=== PATIENT | male | born 2000 | race Caucasian/White ===

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

== ENCOUNTER 2020-03-14 08:26 | Emergency (ER) | payer OTHER ==
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
[2020-03-14 08:48] VITALS: BP 133/58; PULSE 74; TEMP 98.5; BMI 21.1
--- OUTSIDE RECORDS SUMMARY | 2020-03-14 08:56 | XMS ---
:2000 Author Organization [facility] Care Team Providers Name Role Phone ED STAFF PHYSICIAN Unavailable Unavailable ED STAFF PHYSICIAN, STAFF Unavailable Unavailable Re-disclosure Warning The records that you are about to access may contain information from federally- assisted alcohol or drug abuse programs. If such information is present, then the following federally mandated warning applies: This information has been disclosed to you from records protected by federal confidentiality rules (42 CFR part 2). The federal rules prohibit you from making any further disclosure of this information unless further disclosure is expressly permitted by the written consent of the person to whom it pertains or as otherwise permitted by 42 CFR part 2. A general authorization for the release of medical or other information is NOT sufficient for this purpose. The Federal rules restrict any use of the information to criminally investigate or prosecute any alcohol or drug abuse patient.The records that you are about to access may contain highly sensitive health information, the redisclosure of which is protected by Article 27-F of the [facility] Public Health law. If you continue you may haveaccess to information: Regarding HIV / AIDS; Provided by facilities licensed or operated by the [facility] Office of Mental Health; or Provided by the [facility] Office for People With Developmental Disabilities. If such information is present, then the following [facility] mandated warning applies: This information has been disclosed to you from confidential records which are protected by state law. State law prohibits you from making any further disclosure of this information without the specific written consent of the person to whom it pertains, or as otherwise permitted by law. Any unauthorized further disclosure in violation of state law may result in a fine or penitentiary sentence or both. A general authorization for the release of medical or other information is NOT sufficient authorization for further disclosure. Encounters Encounter Providers Location Date Indications Data Source(s ) Emergency Attender: ED STAFF H 05/20/2019 [facility] PHYSICIANAttender: 06:08:00 PM EST M edical Center STAFF ED STAFF - 05/20/2019 PHYSICIANAdmitter: 08:40:00 PM EST ED STAFF PHYSICIAN Patient discharged. Emergency H 09/15/2018 02:30:00 PM EDT [facility] Outpatient 08/26/2018 11:30:00 AM EDT shout[facility] ([employer]) Medications Medication Brand Start Product Dose Route Administrative Pharmacy [facility] Indications Reaction Description Data Name Date Form Instructions Instructions Source(s) doxycycline doxycy 1 complet Cristobal nt hyclate 100 mcmanus ed Anel MG Oral hyclat Medical Capsule e 100 Center doxycycline mg hyclate 100 Capsul mg Capsule, e, Ordered By: Leidy white By: Angel Hamilton FNPDirectio cho ns: 1 Penar, capsule FNPDir oral twice ection a day s: 1 capsul e oral twice a day Ibuprofen ibupro 1 complet [facility] 600 MG Oral fen ed Anel Tablet 600 mg Medical ibuprofen Tablet Center 600 mg , Tablet, Ordere Ordered By: d By: kalina Chaudhary s: 1 tablet a, oral every PADire six hours ctions PRN pain : 1 tablet oral every six hours PRN pain Insurance Providers Payer name Policy type Policy ID Covered Covered green party's Policy P imani / Coverage green party ID relationship to [employer] ormation type wells AFFINITY [id number] SP [id number] 600 AFFINITY O [id number] 01 [id number] HEALTH PLAN AFFINITY O [id number] 01 [id number] 600 HEALTH PLAN Problems, Conditions, and Diagnoses Code Display Name Description Problem Type Effective Data Dates Source(s) F17.210 Nicotine NICOTINE Diagnosis 05/20/2019 [facility] dependence, DEPENDENCE, 06:08:00 PM Medical cigarettes, CIGARETTES, EST Center uncomplicated UNCOMPLICATED J45.909 Unspecified UNSPECIFIED Diagnosis 05/20/2019 [facility] asthma, ASTHMA, 06:08:00 PM Medical uncomplicated UNCOMPLICATED EST Center Y99.9 Unspecified UNSPECIFIED Diagnosis 05/20/2019 [place] external cause EXTERNAL CAUSE 06:08:00 PM Medic al status STATUS EST Center Y92.[address] Diagnosis 05/20/2019 [facility] or not applicable OR NOT APPLICABLE 06:08:00 PM Medical EST Center Y93.89 Activity, other ACTIVITY, OTHER Diagnosis 05/20/2019 [facility] specified SPECIFIED 06:08:00 PM Medical EST Center X50.9XXA Other and OTHER AND Diagnosis 05/20/2019 [facility] unspecified UNSPECIFIED 06:08:00 PM Medical overexertion or OVREXRTN OR EST Center strenuous STRNOUS MOVE/PSTR, movements or INIT postures, initial encounter S43.402A Unspecified sprain UNSPECIFIED SPRAIN Diagnosis 9 [facility] of left shoulder OF LEFT SHOULDER 06:08:00 PM M edical joint, initial JOINT, INITIAL EST Center encounter ENCOUNTER Z72.0 Tobacco use TOBACCO USE Diagnosis 09/15/2018 [facility] 02:30:00 PM Medical EDT Center F10.129 Alcohol abuse with ALCOHOL ABUSE WITH Diagnosis 9 [facility] Anel intoxication, INTOXICATION, 02:30:00 PM Medical unspecified UNSPECIFIED EDT Center R11.2 Nausea with NAUSEA WITH Diagnosis 09/15/2018 [facility] vomiting, VOMITING, 02:30:00 PM Medical unspecified UNSPECIFIED EDT Center R10.9 Unspecified UNSPECIFIED Diagnosis 09/15/2018 [facility] abdominal pain ABDOMINAL PAIN 02:30:00 PM Medic al EDT Center Results ID Date Data Source Urinalysis 07/16/2018 07:12:00 PM EST [facility] Name Value Range Interpretation Description Data Sup porting Code Source(s) Document(s ) Color of Urine YELLOW <content [facility] styleCode="[facility]nam[facility] Anel d">Color, Medical Urine Center </content>YELL OW <content styleCode="[facility]ina lics"> (YELLOW )</content> UNK CLEAR <content [facility] styleCode="[facility] d">Urine Medical Clarity Center </content>ASIYA R <content styleCode="[facility] lics"> (CLEAR )</content> Hemoglobin NEGATIVE <content [facility] [Presence] in styleCode="[facility] Urine by Test d">Urine Blood Medical strip </content>NEGA Center TIVE <content styleCode="[facility]ina lics"> (NEGATIVE )</content> Specific 1.015-1.02 <content [facility] gravity of 5 styleCode="[facility] Anel Urine by Test d">Urine Medical strip Specific Center [place] </content>1.02 5 NM<content styleCode="Kalina lics"> (1.015-1.025 NM)</content> Ketones NEGATIVE <content [facility] [Mass/volume] styleCode="[facility] Anel in Urine by d">Urine Medical Test strip Ketone Center </content>15 MG/DL<content styleCode="Kalina lics"> (NEGATIVE MG/DL)</conten t> pH of Urine by 4.5-8.0 <content [facility] Test strip styleCode="Annamaria Anel d">Urine pH Medical </content>7.0 Center NM<content styleCode="Kalina lics"> (4.5-8.0 NM)</content> Glucose NEGATIVE <content [facility] [Mass/volume] styleCode="[facility]aria Anel in Urine by d">Urine Medical Test strip Glucose Center </content>NEGA TIVE MG/DL<content styleCode="Kalina lics"> (NEGATIVE MG/DL)</conten t> UNK NEGATIVE <content [facility] styleCode="[facility] Anel d">Urine Medical Bilirubin Center </content>NEGA TIVE <content styleCode="[facility]ina lics"> (NEGATIVE )</content> Leukocyte NEGATIVE <content [facility] esterase styleCode="[facility]namaria Anel [Presence] in d">Urine Medical Urine by Test Leukocyte Center strip </content>NEGA TIVE <content styleCode="Kalina lics"> (NEGATIVE )</content> Urobilinogen 0.2-1.0 <content [facility] [Units/volume] styleCode="[facility] Anel in Urine by d">Urine Medical Test strip Urobilinogen Center </content>1.0 MG/DL<content styleCode="Kalina lics"> (0.2-1.0 MG/DL)</conten t> Nitrite NEGATIVE <content [facility] [Presence] in styleCode="[facility]namaria Anel Urine by Test d">Urine Medical strip Nitrite Center </content>NEGA TIVE <content styleCode="Kalina lics"> (NEGATIVE )</content> Protein NEGATIVE <content [facility] [Mass/volume] styleCode="[facility]namaria Tam in Urine by d">Urine Medical Test strip Protein Center </content>NEGA TIVE MG/DL<content styleCode="Kalina lics"> (NEGATIVE MG/DL)</conten t> Procedure Social History Code Duration Value Status Description Data Source(s ) Smoking 05/20/2019 Daily Smoker completed Daily Smoker [facility] 06:25:00 PM EST Medical C enter Smoking 05/20/2019 Daily Smoker completed Daily Smoker [facility] 06:15:00 PM EST Medical C enter Smoking 09/15/2018 Daily Smoker completed Daily Smoker [facility] 03:26:00 PM EDT Medical C enter Smoking 09/15/2018 Daily Smoker completed Daily Smoker [facility] 02:37:00 PM EDT Medical C enter Smoking 07/16/2018 Denies Ever completed Denies Ever Smoked [facility] 07:27:00 PM EST Smoked Medical C enter Smoking 07/16/2018 Denies Ever completed Denies Ever Smoked [facility] 07:08:00 PM EST Smoked Medical C enter Smoking 07/16/2018 Denies Ever completed Denies Ever Smoked [facility] 06:57:00 PM EST Smoked Medical C enter Vital Signs ID Date Data Source UNK Name Value Range Interpretation Code Description Data Source(s) Body temperature 36.022751 36.858784 [facility] Respiratory rate 19 /min 19 /min [facility] Oxygen saturation 97 % 97 % [facility] osep in [facility] by Pulse oximetry Heart rate 88 /min 88 /min [facility] Diastolic blood 82 mm[Hg] 82 mm[Hg] [facility] Systolic blood 138 mm[Hg] 138 mm[Hg] [facility] Body temperature 37.707451 37.396219 [facility] Respiratory rate 18 /min 18 /min [facility] Oxygen saturation 97 % 97 % [facility] osep in [facility] by Pulse oximetry Heart rate 80 /min 80 /min [facility] Diastolic blood 83 mm[Hg] 83 mm[Hg] [facility] Systolic blood 144 mm[Hg] 144 mm[Hg] [facility] Body temperature 36.834873 36.573349 [facility] Respiratory rate 18 /min 18 /min [facility] Oxygen saturation 99 % 99 % [facility] Arterial blood Medical Center by Pulse oximetry Heart rate 74 /min 74 /min [facility] Diastolic blood 77 mm[Hg] 77 mm[Hg] [facility] pressure Medical Center Systolic blood 119 mm[Hg] 119 mm[Hg] [facility] Body weight 59.044212 kg 59.863190 kg [facility] Measured Medical Center Body temperature 36.833477 36.708928 [facility] Respiratory rate 18 /min 18 /min [facility] Oxygen saturation 99 % 99 % [facility] Arterial blood Medical Center by Pulse oximetry Heart rate 83 /min 83 /min [facility] Diastolic blood 74 mm[Hg] 74 mm[Hg] [facility] pressure Medical Center Systolic blood 132 mm[Hg] 132 mm[Hg] [facility] Body weight 62.164976 kg 62.005140 kg [facility] Body temperature 37.036192 37.695287 [facility] Respiratory rate 20 /min 20 /min [facility] Oxygen saturation 98 % 98 % [facility] Arterial blood Medical Center by Pulse oximetry Heart rate 81 /min 81 /min [facility] Diastolic blood 66 mm[Hg] 66 mm[Hg] [facility] pressure Medical Center Systolic blood 135 mm[Hg] 135 mm[Hg] [facility] Patient Treatment Plan of Care Planned Activity Planned Date Details Description Data Source (s) Ibuprofen 600 MG Oral [facility] Tablet [facility] doxycycline hyclate 100 MG S [facility] Oral Capsule [facility]
--- NOTE | 2020-03-15 13:25 | EKG ---
Test Reason : Blood Pressure : / mmHG Vent. Rate : 071 BPM Atrial Rate : 071 BPM P-R Int : 128 ms QRS Dur : 096 ms QT Int : 364 ms P-R-T Axes : 033 048 028 degrees QTc Int : 395 ms NORMAL SINUS RHYTHM WITH SINUS ARRHYTHMIA RSR' OR QR PATTERN IN V1 SUGGESTS RIGHT VENTRICULAR CONDUCTION DELAY BORDERLINE ECG NO PREVIOUS ECGS AVAILABLE Confirmed by NICOLLE BAIRD MD ([id number]) on 03/15/2020 1:24:47 PM Referred By: Confirmed By:NICOLLE BAIRD MD
== END 2020-03-14 09:30 | disposition home or self-care (01) ==
LOC: JER 08:26
DX: S20.219A Contusion of unspecified front wall of thorax, initial encounter (principal)
CPT/HCPCS: 71046-TC-FY; 71111-TC-FY; 93005; 93010; 99285-25

== ENCOUNTER 2021-03-03 07:31 | Emergency (ER) | payer OTHER ==
[2021-03-03 07:45] VITALS: BMI 23.8
[2021-03-03] MEDS ORDERED: LACTATED RINGERS SOLUTION 1000 ML INFUS.BAG IV ONE (08:22)
[2021-03-03] MEDS ORDERED: ACETAMINOPHEN 1000 MG/100 ML VIAL (NON FORMULARY) IVPB ONE (08:22)
[2021-03-03] MEDS ORDERED: METOCLOPRAMIDE HCL INJECTION 10 MG/2 ML VIAL IVPUSH ONE (08:22)
[2021-03-03] MEDS ORDERED: METOCLOPRAMIDE HCL INJECTION 10 MG/2 ML VIAL ONE (08:31)
[2021-03-03] MEDS ORDERED: ACETAMINOPHEN INJECTION 100 ML IVPB ONE (08:32)
[2021-03-03 09:38] LABS: BASO % 0.3 % (0-2.0); EOS % 1.3 % (0-4.5); HEMATOCRIT 44.6 % (35.4-49); HEMOGLOBIN 15.2 GM/dL (11.7-16.9); LYMPH % 27.5 % (8-40); MCH 31.9 pg (25.7-33.7); MEAN CELL VOLUME 93.8 fl (80-96); MEAN PLT VOLUME 10.1 fl (7.5-11.1); NEUT % 63.9 % (42.8-82.8); PLATELET COUNT 144 10^3/uL (134-434); RBC 4.76 M/mm3 (4.00-5.60); RDW 13.2 % (11.9-15.9)
[2021-03-03] MEDS ORDERED: levETIRAcetam 500 MG/5 ML INJECTION VIAL IVPB ONE ×2 (09:50→10:41)
[2021-03-03 10:05] LABS: ALBUMIN 4.3 g/dl (3.4-5.0); BLOOD UREA NITROGEN 7.9 mg/dL (7-18); CALCIUM 9.1 mg/dL (8.5-10.1); MAGNESIUM 2.2 mg/dL (1.8-2.4)
[2021-03-03 10:09] LABS: CREATININE 0.8 mg/dL (0.55-1.3)
[2021-03-03 10:10] LABS: BILIRUBIN,TOTAL 0.4 mg/dL (0.2-1); TOT PROT 7.4 g/dl (6.4-8.2)
[2021-03-03 12:17] VITALS: BP 131/69; PULSE 69; TEMP 97.8
== END 2021-03-03 12:17 | disposition home or self-care (01) ==
LOC: JER 07:31
PROC: 3E033GC Introduction of Other Therapeutic Substance into Peripheral Vein, Percutaneous Approach (ICD-10-PCS; principal; 2021-03-03)
DX: R56.9 Unspecified convulsions (principal)
CPT/HCPCS: 36415; 80053; 83735; 85025; 96374; 96375; 99284-25; C9803; J0131; U0003; U0005

== ENCOUNTER 2021-04-29 07:47 | Emergency (ER) | payer OTHER ==
[2021-04-29 08:15] VITALS: TEMP 98.7; BMI 23.5
[2021-04-29] MEDS ORDERED: OXcarbazepine 300 MG TABLET (UD) PO ONE (08:42)
[2021-04-29 09:32] LABS: EPI CELLS 7 /uL (0-25.1); HYALINE CASTS 2 /uL (0-3.1); PH,URINE 5.5 (5.0-8.0); URINE APPEARANCE CLEAR; URINE BACTERIA 6 /uL (0-1359); URINE BILIRUBIN NEGATIVE (NEGATIVE); URINE COLOR YELLOW; URINE GLUCOSE (UA) NEGATIVE (NEGATIVE); URINE KETONE TRACE (NEGATIVE); URINE LEUK ESTERASE NEGATIVE (NEGATIVE); URINE NITRITE NEGATIVE (NEGATIVE); URINE PROTEIN 1+ (NEGATIVE); URINE RBC 5 /uL (0-23.9); URINE UROBILINOGEN 0.2 mg/dL (0.2-1.0); URINE WBC 13 /uL (0-25.8)
[2021-04-29] MEDS ORDERED: OXcarbazepine 300 MG TABLET (UD) PO SCH (10:00)
[2021-04-29 10:01] LABS: ALBUMIN 4.8 g/dl (3.4-5.0); CALCIUM 9.6 mg/dL (8.5-10.1); MAGNESIUM 2.7 mg/dL (1.8-2.4)
[2021-04-29 10:04] LABS: CREATININE 0.9 mg/dL (0.55-1.3); PHOSPHOROUS 1.3 mg/dL (2.5-4.9)
[2021-04-29 10:06] LABS: BILIRUBIN,TOTAL 0.8 mg/dL (0.2-1)
[2021-04-29 10:31] LABS: BASO % 0.3 % (0-2.0); EOS % 0.4 % (0-4.5); HEMOGLOBIN 14.8 GM/dL (11.7-16.9); LYMPH % 21.3 % (8-40); MCH 32.1 pg (25.7-33.7); MCHC 34.4 g/dl (32.0-35.9); MEAN CELL VOLUME 93.4 fl (80-96); MONO % 6.5 % (3.8-10.2); NEUT % 71.5 % (42.8-82.8); PLATELET COUNT 186 10^3/uL (134-434); RBC 4.61 M/mm3 (4.00-5.60); RDW 13.2 % (11.9-15.9); WHITE BLOOD COUNT 8.6 K/mm3 (4.0-10.0)
[2021-04-29 10:44] VITALS: BP 133/68; PULSE 75
== END 2021-04-29 11:21 | disposition home or self-care (01) ==
LOC: JER 07:47
DX: G40.89 Other seizures (principal)
CPT/HCPCS: 36415; 80053; 81003; 83735; 84100; 85025; 87086; 99283-25

== ENCOUNTER 2021-12-20 15:52 | Emergency (ER) | payer OTHER ==
[2021-12-20 16:07] VITALS: BP 132/69; PULSE 63; TEMP 98.2; BMI 23.1
[2021-12-20] MEDS ORDERED: KETOROLAC TROMETHAMINE 30 MG/1 ML VIAL IM ONE (17:37)
[2021-12-20] MEDS ORDERED: KETOROLAC TROMETHAMINE 30 MG/1 ML VIAL ONE (17:38)
== END 2021-12-20 17:53 | disposition home or self-care (01) ==
LOC: JERFT 15:52
PROC: 3E0233Z Introduction of Anti-inflammatory into Muscle, Percutaneous Approach (ICD-10-PCS; principal; 2021-12-20)
DX: M62.89 Other specified disorders of muscle (principal); V49.40XA Driver injured in collision with unspecified motor vehicles in traffic accident, initial encounter
CPT/HCPCS: 99284-25

== ENCOUNTER 2022-03-13 21:24 | Emergency (ER) | payer OTHER ==
[2022-03-13 21:37] VITALS: BP 120/66; PULSE 102; RESP 20; TEMP 97.2; BMI 22.8
[2022-03-13] MEDS ORDERED: OXcarbazepine 300 MG TABLET (UD) PO ONE (22:00)
== END 2022-03-13 22:58 | disposition home or self-care (01) ==
LOC: JER 21:24
DX: R56.9 Unspecified convulsions (principal)
CPT/HCPCS: 99283-25

== ENCOUNTER 2022-04-09 03:07 | Emergency (ER) | payer OTHER ==
[2022-04-09 03:33] VITALS: BP 152/98; PULSE 88; RESP 18; TEMP 98; BMI 23.5
[2022-04-09] MEDS ORDERED: ACETAMINOPHEN 500 MG TABLET (FP) PO ONE (03:39)
[2022-04-09] MEDS ORDERED: AMOX TR/POT CLAV 875MG/125MG TABLETS (FP) PO ONE (03:39)
[2022-04-09] MEDS ORDERED: IBUPROFEN 600 MG TABLET (FP) PO ONE ×2 (03:39→03:42)
[2022-04-09] MEDS ORDERED: AMOX TR/POT CLAV 875MG/125MG TABLETS (FP) ONE (03:42)
[2022-04-09] MEDS ORDERED: ACETAMINOPHEN 500 MG TABLET (FP) ONE (03:42)
== END 2022-04-09 03:47 | disposition home or self-care (01) ==
LOC: JER 03:07
DX: K08.89 Other specified disorders of teeth and supporting structures (principal)
CPT/HCPCS: 99283-25

== ENCOUNTER 2022-05-26 04:52 | Emergency (ER) | payer OTHER ==
[2022-05-26 05:18] VITALS: TEMP 98.1; BMI 22.8
[2022-05-26 06:01] VITALS: BP 107/42; PULSE 94; RESP 18
== END 2022-05-26 06:10 | disposition left against medical advice (07) ==
LOC: JER 04:52
DX: R56.9 Unspecified convulsions (principal)
CPT/HCPCS: 99283-25

== ENCOUNTER 2022-06-25 04:34 | Emergency (ER) | payer OTHER ==
[2022-06-25] MEDS ORDERED: OXcarbazepine 300 MG TABLET (UD) PO ONE (04:52)
[2022-06-25 04:59] VITALS: BP 126/69; PULSE 103; RESP 19; TEMP 98.8; BMI 24.3
== END 2022-06-25 05:37 | disposition home or self-care (01) ==
LOC: JER 04:34
DX: R56.9 Unspecified convulsions (principal)
CPT/HCPCS: 82962; 99283-25

== ENCOUNTER 2022-08-31 07:04 | Emergency (ER) | payer OTHER ==
[2022-08-31 07:28] VITALS: BP 129/83; PULSE 83; RESP 20; TEMP 97.8; BMI 24.3
== END 2022-08-31 07:48 | disposition home or self-care (01) ==
LOC: JER 07:04
DX: G40.89 Other seizures (principal)
CPT/HCPCS: 82962; 99282-25

== ENCOUNTER 2023-05-15 09:50 | Emergency (ER) | payer OTHER ==
[2023-05-15 09:54] VITALS: BMI 23.5
[2023-05-15 10:50] LABS: BASO % 0.3 % (0-2.0); EOS % 0.1 % (0-4.5); HEMATOCRIT 41.2 % (35.4-49); MCH 32.4 pg (25.7-33.7); MEAN CELL VOLUME 95.3 fl (80-96); MEAN PLT VOLUME 9.1 fl (7.5-11.1); MONO % 5.1 % (3.8-10.2); NEUT % 81.5 % (42.8-82.8); PLATELET COUNT 154 10^3/uL (134-434); RBC 4.33 M/mm3 (4.00-5.60); RDW 13.1 % (11.9-15.9); WHITE BLOOD COUNT 10.4 K/mm3 (4.0-10.0)
[2023-05-15 11:11] LABS: POTASSIUM 3.9 mmol/L (3.5-5.1)
[2023-05-15 11:13] LABS: CALCIUM 9.1 mg/dL (8.5-10.1)
[2023-05-15 11:14] LABS: ALBUMIN 4.6 g/dl (3.4-5.0); BLOOD UREA NITROGEN 13.1 mg/dL (7-18)
[2023-05-15 11:17] LABS: CREATININE 0.9 mg/dL (0.55-1.3)
[2023-05-15 11:19] LABS: BILIRUBIN,TOTAL 0.8 mg/dL (0.2-1); TOT PROT 7.5 g/dl (6.4-8.2)
[2023-05-15 11:42] VITALS: BP 118/76; PULSE 62; RESP 15; TEMP 98.2
== END 2023-05-15 12:15 | disposition home or self-care (01) ==
LOC: JER 09:50
DX: S00.81XA Abrasion of other part of head, initial encounter (principal); R56.9 Unspecified convulsions; W19.XXXA Unspecified fall, initial encounter
CPT/HCPCS: 36415; 80053; 85025; 93005; 93010; 99284-25

== ENCOUNTER 2023-09-24 22:35 | Emergency (ER) | payer OTHER ==
[2023-09-24 23:29] VITALS: BP 114/71; PULSE 72; RESP 20; TEMP 98.1; BMI 21.1
== END 2023-09-24 23:23 | disposition left against medical advice (07) ==
LOC: JER 22:35
DX: G40.909 Epilepsy, unspecified, not intractable, without status epilepticus (principal)
CPT/HCPCS: 82962; 99283-25